=== PATIENT | male | born 1985 | race Caucasian/White ===

== ENCOUNTER → 2017-02-01 | Emergency (ER) | payer OTHER ==
[~2017-02-01] MED LIST: SODIUM CHLORIDE 1,000 ML IV STA; SULFAMETHOXAZOLE/TRIMETHOPRIM 800MG/160MG D.S. TABLET PO ONE
[2017-02-01 21:07] VITALS: BP 121/64; PULSE 88; TEMP 98.9; BMI 25.7
--- NOTE | 2017-02-01 21:08 | PDOC ---
Rapid Medical Evaluation Time Seen by Provider: 02/01/17 20:57 Medical Evaluation: Allergies Allergy/AdvReac Type Severity Reaction Status Date / Time No Known Drug Allergies Allergy Verified 05/11/16 12:43 02/01/17 20:57 I have performed a brief in-person evaluation of this patient. The patient presents with a chief complaint of: anal abscess x 2 days, no rectal intercourse, no shaving Pertinent physical exam findings: + abscess to the perineal region I have ordered the following: cbc, comp, lactic acid, blood cx, iv insert The patient will proceed to the ED for further evaluation.
[2017-02-01 21:32] LABS: BASOPHIL 0.6 % (0-2.0); EOSINOPHIL 0.4 % (0-4.5); MCH 29.9 pg (25.7-33.7); MCHC 34.1 g/dl (32.0-35.9); MEAN CELL VOLUME 87.5 fl (80-96); MEAN PLT VOLUME 8.2 fl (7.5-11.1); NEUTROPHILS 81.2 % (42.8-82.8); PLATELET COUNT 199 K/MM3 (134-434); WHITE BLOOD COUNT 11.9 K/mm3 (4.0-10.0)
[2017-02-01 21:51] LABS: ALBUMIN 4.2 g/dl (3.4-5.0); CALCIUM 8.6 mg/dL (8.5-10.1); CREATININE 1.4 mg/dL (0.7-1.3)
[2017-02-01 21:54] LABS: BILIRUBIN,TOTAL 0.4 mg/dL (0.2-1.0); TOT PROT 7.7 g/dl (6.4-8.2)
--- NOTE | 2017-02-01 23:24 | PDOC ---
History of Present Illness - General Chief Complaint: Wound Infection Stated Complaint: CYST Time Seen by Provider: 02/01/17 20:57 History Source: Patient Exam Limitations: No Limitations - History of Present Illness Timing/Duration: 24 hours Past History - Past Medical History Allergies/Adverse Reactions: Allergies Allergy/AdvReac Type Severity Reaction Status Date / Time No Known Drug Allergies Allergy Verified 02/01/17 21:03 Home Medications: Ambulatory Orders Ibuprofen 800 mg PO TID PRN #60 tablet MDD 3 05/11/16 Suicide Attempt (Hx): No Other medical history: rectal abcess - Immunization History Immunization Up to Date: Yes - Psycho/Social/Smoking Cessation Hx Anxiety: No Suicidal Ideation: No Smoking Status: Yes Smoking History: Never smoked Have you smoked in the past 12 months: No Number of Cigarettes Smoked Daily: 1 Information on smoking cessation initiated: No 'Breaking Loose' booklet given: 05/11/16 Hx Alcohol Use: No Drug/Substance Use Hx: No Substance Use Type: None Hx Substance Use Treatment: No Review of Systems - Review of Systems Able to Perform ROS?: Yes Comments:: 02/01/17 23:22 CONSTITUTIONAL: Absent: fever, chills, diaphoresis, generalized weakness, malaise, loss of appetite HEENT: Absent: rhinorrhea, nasal congestion, throat pain, throat swelling, difficulty swallowing, mouth swelling, ear pain, eye pain, visual Changes CARDIOVASCULAR: Absent: chest pain, loss of consciousness, palpitations, irregular heart rate, peripheral edema RESPIRATORY: Absent: cough, shortness of breath, dyspnea with exertion, orthopnea, wheezing, stridor, hemoptysis GASTROINTESTINAL: Absent: abdominal pain, abdominal distension, nausea, vomiting, diarrhea, constipation, melena, hematochezia GENITOURINARY: Absent: dysuria, frequency, urgency, hesitancy, hematuria, flank pain, genital pain Right intergluteal cleft pain MUSCULOSKELETAL: Absent: myalgia, arthralgia, joint swelling SKIN: Absent: rash, itching, pallor HEMATOLOGIC/IMMUNOLOGIC: Absent: easy bleeding, easy bruising, lymphadenopathy, frequent infections ENDOCRINE: Absent: unexplained weight gain, unexplained weight loss, heat intolerance, cold intolerance NEUROLOGIC: Absent: headache, focal weakness or paresthesias, dizziness, unsteady gait, seizure, mental status changes, bladder or bowel incontinence PSYCHIATRIC: Absent: anxiety, depression, suicidal or homicidal ideation, hallucinations. Is the patient limited [place] Islander proficient: No *Physical Exam - Vital Signs Last Vital Signs Temp Pulse Resp BP Pulse Ox 98.9 F 88 20 121/64 97 02/01/17 21:03 02/01/17 21:03 02/01/17 21:03 02/01/17 21:03 02/01/17 21:03 - Physical Exam Comments: 02/01/17 23:23 GENERAL: Well developed, well nourished. Awake and alert. No acute distress. HEENT: Normocephalic, atraumatic. PERRLA, EOMI. No conjunctival pallor. Sclera are non- icteric. Moist mucous membranes. Oropharynx is clear. NECK: Supple. Full ROM. No JVD. Carotid pulses 2+ and symmetric, without bruits. No thyromegaly. No lymphadenopathy. CARDIOVASCULAR: Regular rate and rhythm. No murmurs, rubs, or gallops. Distal pulses are 2+ and symmetric. PULMONARY: No evidence of respiratory distress. Lungs clear to auscultation bilaterally. No wheezing, rales or rhonchi. ABDOMINAL: Soft. Non-tender. Non-distended. No rebound or guarding. No organomegaly. Normoactive bowel sounds. Right intergluteal fold/indurated 2cm skin; neg drainage, neg erythema, neg lymphangitis MUSCULOSKELETAL Normal range of motion at all joints. No bony deformities or tenderness. No CVA tenderness. EXTREMITIES: No cyanosis. No clubbing. No edema. No calf tenderness. SKIN: Warm and dry. Normal capillary refill. No rashes. No jaundice. NEUROLOGICAL: Alert, awake, appropriate. Cranial nerves 2-12 intact. No deficits to light touch and temperature in face, upper extremities and lower extremities. No motor deficits in the in face, upper extremities and lower extremities. Normoreflexic in the upper and lower extremities. Normal speech. Toes are down- going bilaterally. Gait is normal without ataxia. PSYCHIATRIC: Cooperative. Good eye contact. Appropriate mood and affect. ED Treatment Course - LABORATORY CBC & Chemistry Diagram: 02/01/17 21:00 02/01/17 23:53 - ADDITIONAL ORDERS Additional order review: Laboratory Results 02/01/17 02/01/17 21:00 21:00 Sodium 139 Potassium 4.2 Chloride 104 Carbon Dioxide 28 Anion Gap 7 L BUN 17 D Creatinine 1.4 H D Creat Clearance w eGFR 58.73 Random Glucose 153 H D Lactic Acid 1.927 Calcium 8.6 Total Bilirubin 0.4 D AST 15 D ALT 31 Alkaline Phosphatase 58 Total Protein 7.7 Albumin 4.2 02/01/17 21:00 RBC 4.50 MCV 87.5 MCHC 34.1 RDW 13.0 MPV 8.2 Neutrophils % 81.2 Lymphocytes % 11.7 D Monocytes % 6.1 Eosinophils % 0.4 Basophils % 0.6 - RADIOLOGY Radiograph Interpretation: 02/02/17 02:20 CAT scan preliminary reading: No perirectal, perianal or other perineal abscess identified *DC/Admit/Observation/Transfer Diagnosis at time of Disposition: Abscess of buttock - Discharge Dispostion Disposition: HOME Condition at time of disposition: Stable - Referrals Referrals: Nicholas Zaidi MD [Primary Care Provider] - Raúl Campbell MD [Staff Physician] - - Patient Instructions Printed Discharge Instructions: DI for Skin Abscess Additional Instructions: Warm soaks tylenol as needed for pain Follow up with the listed surgeon this week Take your antibiotics/bactrim Return to the ER for severe pain, red streaks, fever Progress Note - Progress Note Progress Note: 31-year-old male presents to the emergency department complaining of pain to the right intergluteal cleft 2 days. Patient states there is no drainage/ bleeding but just an aching discomfort. He denies any abdominal pains, flank pains, urinary symptoms: Frequency/urgency/hesitancy, hematuria or problems with his bowel movements. He denies nausea/vomiting, fever/chills.
== END | disposition home or self-care (01) ==
LOC: JER 20:41
PROC: 3E0337Z Introduction of Electrolytic and Water Balance Substance into Peripheral Vein, Percutaneous Approach (ICD-10-PCS; principal; 2017-02-01)
DX: L02.31 Cutaneous abscess of buttock (principal)
CPT/HCPCS: 36415; 74177-TC; 80053; 82565; 83605; 84520; 85025; 87040; 99281-25

== ENCOUNTER 2018-03-21 01:22 | Emergency (ER) | payer OTHER ==
[2018-03-21 01:49] VITALS: BP 148/72; PULSE 85; TEMP 97.5; BMI 29.2
[2018-03-21] MEDS ORDERED: KETOROLAC TROMETHAMINE 60 MG/2 ML VIAL IM ONE (01:59)
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
[2018-03-21] MEDS ORDERED: KETOROLAC TROMETHAMINE 60 MG/2 ML VIAL ONE (02:10)
[2018-03-21] MEDS ORDERED: IBUPROFEN 400 MG TABLET (FP) PO ONE ×2 (02:20→02:24)
== END 2018-03-21 03:12 | disposition home or self-care (01) ==
LOC: JER 01:22
DX: S39.012A Strain of muscle, fascia and tendon of lower back, initial encounter (principal); S16.1XXA Strain of muscle, fascia and tendon at neck level, initial encounter; V53.5XXA Driver of pick-up truck or van injured in collision with car, pick-up truck or van in traffic accident, initial encounter; Y92.488 Other paved roadways as the place of occurrence of the external cause; Y93.89 Activity, other specified; Y99.8 Other external cause status
CPT/HCPCS: 99281-25

== ENCOUNTER 2018-04-14 15:46 | Emergency (ER) | payer OTHER ==
--- NOTE | 2018-04-14 15:52 | PDOC ---
Rapid Medical Evaluation Time Seen by Provider: 04/14/18 15:47 Medical Evaluation: Allergies Allergy/AdvReac Type Severity Reaction Status Date / Time No Known Drug Allergies Allergy Verified 03/21/18 01:47 I have performed a brief in-person evaluation of this patient. The patient presents with a chief complaint of: red eyes with crusted drainage this morning Pertinent physical exam findings: b/l injected conjunctiva I have ordered the following: nothing The patient will proceed to the ED for further evaluation. Discharge Disposition - Diagnosis Redness and discharge of eye - Referrals - Patient Instructions - Post Discharge Activity
[2018-04-14 15:56] VITALS: BP 121/77; PULSE 80; TEMP 98.3; BMI 27.2
[2018-04-14] MEDS ORDERED: TOBRAMYCIN 0.3% OPHTH SOLN 5 ML BOTTLE OD ONE ×2 (16:21→16:31)
[2018-04-14] MEDS ORDERED: TOBRAMYCIN 0.3% OPHTH SOLN 5 ML BOTTLE ONE (16:30)
--- NOTE | 2018-04-14 16:35 | PDOC ---
History of Present Illness - General Stated Complaint: EYE PROBLEM Time Seen by Provider: 04/14/18 15:47 History Source: Patient Exam Limitations: No Limitations - History of Present Illness Initial Comments: 04/14/18 16:30 States woke up this morning with both eyes crusted shut, started on right eye yesterday but spread to the left small morning. Denies visual changes, denies any recent injury or known foreign body/injury to either eye. States has complained of same type of problem but does not have as read of eyes. States drainage was greenish yellow color. No fever, no ear pain or throat pain or other problems. Timing/Duration: unsure, 24 hours Past History - Past Medical History Allergies/Adverse Reactions: Allergies Allergy/AdvReac Type Severity Reaction Status Date / Time No Known Drug Allergies Allergy Verified 04/14/18 15:52 Home Medications: Ambulatory Orders NK [No Known Home Medication] 04/14/18 - Immunization History Immunization Up to Date: Yes - Suicide/Smoking/Psychosocial Hx Smoking Status: Yes Smoking History: Never smoked Have you smoked in the past 12 months: No Number of Cigarettes Smoked Daily: 1 'Breaking Loose' booklet given: 05/11/16 Hx Alcohol Use: Yes (socially) Drug/Substance Use Hx: No Substance Use Type: None Hx Substance Use Treatment: No *Physical Exam - Vital Signs Last Vital Signs Temp Pulse Resp BP Pulse Ox 98.3 F 80 16 121/77 100 04/14/18 15:53 04/14/18 15:53 04/14/18 15:53 04/14/18 15:53 04/14/18 15:53 - Physical Exam General Appearance: Yes: Nourished, Appropriately Dressed, Apparent Distress HEENT: positive: LUKASZ, Normal ENT Inspection, TMs Normal, Pharynx Normal, Other (erythema/ drainage ) Neck: positive: Supple. negative: Tender Respiratory/Chest: positive: Lungs Clear Extremity: positive: Normal Capillary Refill, Normal Inspection Integumentary: positive: Normal Color, Dry, Warm Neurologic: positive: ip attorney II-XII NML intact, Fully Oriented, Alert, Normal Mood/ Affect, Normal Response, Motor Strength 5/5 Medical Decision Making - Medical Decision Making 04/14/18 16:33 Lateral conjunctivitis, will treat with tobramycin *DC/Admit/Observation/Transfer Diagnosis at time of Disposition: Redness and discharge of eye Acute bacterial conjunctivitis Qualifiers: Laterality: bilateral Qualified Code(s): H10.33 - Unspecified acute conjunctivitis, bilateral - Discharge Dispostion Disposition: HOME Condition at time of disposition: Stable Decision to Admit order: No - Referrals - Patient Instructions Printed Discharge Instructions: DI for Conjunctivitis Additional Instructions: Rest, avoid rubbing eyes Wash hands frequently as this is very contagious Wash hands, use eye drops as directed, wash hands after use Do not share eyedrops with other person to may become infected as this will infect them Tobramycin drops 2 drops to affected eye 4 times a day for 5 days Avoid contact with others until redness and discharge is gone from eyes. Followup with ophthalmology or private physician as needed - Post Discharge Activity
== END 2018-04-14 16:43 | disposition home or self-care (01) ==
LOC: JERFT 15:46
DX: H10.33 Unspecified acute conjunctivitis, bilateral (principal)
CPT/HCPCS: 99281-25

== ENCOUNTER 2024-03-23 14:29 | Emergency (ER) | payer OTHER ==
[2024-03-23 14:36] VITALS: BP 134/73; PULSE 69; RESP 18; TEMP 98; BMI 29.4
== END 2024-03-23 16:00 | disposition home or self-care (01) ==
LOC: JERFT 14:29
DX: S90.32XA Contusion of left foot, initial encounter (principal); W20.8XXA Other cause of strike by thrown, projected or falling object, initial encounter; Y99.0 Civilian activity done for income or pay
CPT/HCPCS: 73610-TC-LT-FY; 73630-TC-LT; 99283-25